=== PATIENT | female | born 1965 | race Caucasian/White ===

== ENCOUNTER 2022-04-28 11:14 | Observation (INO) | payer OTHER ==
[~2022-04-28] VITALS: Ht 157.5 cm; Wt 90.3 kg
[2022-04-28] MEDS ORDERED: METOPROLOL TAR100 MG PO (13:28)
[2022-04-28] MEDS ORDERED: FUROSEMIDE40 MG PO (13:28)
[2022-04-28] MEDS ORDERED: LOSARTAN POTASS25 MG PO (13:28)
[2022-04-28] MEDS ORDERED: OMEPRAZOLE40 MG PO (13:28)
[2022-04-28] MEDS ORDERED: LIPITOR10 MG PO (13:28)
[2022-04-28] MEDS ORDERED: ASPIRIN81 MG PO (13:28)
[2022-04-28 13:37] VITALS: BP 169/87
[2022-04-28 13:38] VITALS: BP 165/84
[2022-04-28] MEDS ORDERED: INSULIN LISPRO 100 UNIT/1 ML 3ML VIAL SQ SCH (16:30)
[2022-04-28] MEDS: INSULIN LISPRO 100 UNIT/1 ML 3ML VIAL SQ SCH ×2 (17:00→21:00)
[2022-04-28] MEDS ORDERED: DEXTROSE 50% SYRINGE 50 ML IV PRN (17:00)
[2022-04-28 17:06] VITALS: BP 179/86
[2022-04-28 17:07] LABS: BASOPHILS % 0.1 % (0.0-1.0); EOSINOPHILS % 0.1 % (0.0-6.0); HEMATOCRIT 41.6 % (34.2-44.1); HEMOGLOBIN 13.6 g/dL (12.0-16.0); LYMPHOCYTES # (AUTO) 1.4 (1.0-3.2); LYMPHOCYTES % 9.5 % (18.0-39.1); MEAN CORPUSCULAR HEMOGLOBIN 29.2 pg (28-32); MEAN CORPUSCULAR HGB CONC 32.7 g/dL (31-35); MEAN CORPUSCULAR VOLUME 89.3 fL (81-99); MONOCYTES # (AUTO) 0.9 (0.2-0.8); MONOCYTES % 5.8 % (4.4-11.3); NEUTROPHILS # (AUTO) 12.4 (2.1-6.9); PLATELET COUNT 301 x10e3/uL (140-360); RED BLOOD COUNT 4.66 x10e6/uL (3.6-5.1); RED CELL DISTRIBUTION WIDTH 12.1 % (11.7-14.4)
[2022-04-28 17:17] LABS: INR 0.95; PROTHROMBIN TIME 13.5 seconds (11.9-14.5)
[2022-04-28 17:27] LABS: ALBUMIN 3.5 g/dL (3.5-5.0); ANION GAP 16.7 mmol/L (8-16); CALCIUM 8.9 mg/dL (8.4-10.2); CREATININE, SERUM 0.73 mg/dL (0.57-1.11); POTASSIUM 3.7 mmol/L (3.5-5.1)
[2022-04-28] MEDS: METOPROLOL TARTRATE 50 MG TAB PO SCH (18:01)
[2022-04-28 20:15] VITALS: BP 179/86
[2022-04-28] MEDS ORDERED: ACETAMINOPHEN 325 MG TAB PO PRN (20:15)
[2022-04-28] MEDS ORDERED: HYDRALAZINE HCL 20 MG/ML VIAL IV PRN (20:15)
[2022-04-28] MEDS ORDERED: POTASSIUM CHLORIDE 20MEQ/100ML 100 ML IV PRN (20:15)
[2022-04-28] MEDS ORDERED: ONDANSETRON HCL INJ 2MG/ML 2ML 2 MG/ML VIAL IV PRN (20:15)
[2022-04-28] MEDS ORDERED: MAGNESIUM SULFATE 2GM/50ML IV PRN (20:15)
[2022-04-28 20:39] VITALS: BP 186/79
[2022-04-28] MEDS ORDERED: INSULIN GLARGINE 100 UNITS/ML VIAL SQ SCH (21:00)
[2022-04-28] MEDS ORDERED: ATORVASTATIN 40 MG TAB PO SCH (21:00)
[2022-04-28] MEDS ORDERED: ENOXAPARIN SODIUM INJ 100 MG/ML SYR SC ONE (21:00)
[2022-04-28 23:43] VITALS: BP 164/84
[2022-04-29 05:23] VITALS: BP 148/81
[2022-04-29 06:01] LABS: BASOPHILS % 0.2 % (0.0-1.0); EOSINOPHILS % 0.1 % (0.0-6.0); HEMATOCRIT 41.6 % (34.2-44.1); HEMOGLOBIN 14.1 g/dL (12.0-16.0); LYMPHOCYTES # (AUTO) 1.5 (1.0-3.2); LYMPHOCYTES % 11.5 % (18.0-39.1); MEAN CORPUSCULAR HEMOGLOBIN 28.8 pg (28-32); MEAN CORPUSCULAR HGB CONC 33.9 g/dL (31-35); MEAN CORPUSCULAR VOLUME 84.9 fL (81-99); MONOCYTES # (AUTO) 0.8 (0.2-0.8); NEUTROPHILS # (AUTO) 10.9 (2.1-6.9); NEUTROPHILS % 81.7 % (38.7-80.0); PLATELET COUNT 326 x10e3/uL (140-360); RED CELL DISTRIBUTION WIDTH 11.9 % (11.7-14.4)
[2022-04-29 06:41] LABS: THYROID STIMULATING HORMONE 0.339 uIU/mL (0.350-4.940)
[2022-04-29 06:43] LABS: CHOL/HDL RATIO 3.8 (3.0-3.6); MAGNESIUM 2.1 MG/DL (1.3-2.1)
[2022-04-29] MEDS ORDERED: OMEPRAZOLE 20 MG CAP PO SCH (07:30)
[2022-04-29 07:42] VITALS: BP 187/94
[2022-04-29] MEDS: INSULIN LISPRO 100 UNIT/1 ML 3ML VIAL SQ SCH ×2 (08:00→12:00)
[2022-04-29 08:42] VITALS: BP 187/94
[2022-04-29] MEDS: METOPROLOL TARTRATE 50 MG TAB PO SCH (08:44)
[2022-04-29] MEDS ORDERED: ASPIRIN 81 MG CHEW TAB PO SCH (09:00)
[2022-04-29 09:40] VITALS: BP 184/107
[2022-04-29] MEDS ORDERED: HEPARIN SOD/SOD CHLORIDE 2,000 ML ONE (10:05)
[2022-04-29] MEDS ORDERED: IOPAMIDOL 370 MG/ML 100 ML INFUS..BTL INJ ONE (10:05)
[2022-04-29] MEDS ORDERED: MIDAZOLAM HCL 2 MG/2 ML VIAL ONE (10:13)
[2022-04-29] MEDS ORDERED: FENTANYL CITRATE/PF 100MCG/2 ML INJ ONE (10:13)
[2022-04-29 11:29] VITALS: BP 171/93
[2022-04-29] MEDS ORDERED: ISOSORBIDE MONONITRATE 30 MG TAB CR PO SCH (12:15)
[2022-04-29] MEDS ORDERED: CLOPIDOGREL BISULFATE 75 MG TAB PO SCH (12:15)
[2022-04-29 15:25] VITALS: BP 147/90
[2022-04-29] MEDS ORDERED: PLAVIX75 MG PO (16:34)
== END 2022-04-29 18:10 | disposition home or self-care (01) ==
LOC: MED/SURG2 11:14 → INTOOBSV 11:14
PROVIDERS: ADMIT Internal Medicine; ATTEND Internal Medicine
DX: I25.720 Atherosclerosis of autologous artery coronary artery bypass graft(s) with unstable angina pectoris (principal); I21.A1 Myocardial infarction type 2; Z95.1 Presence of aortocoronary bypass graft; Z20.822 Contact with and (suspected) exposure to COVID-19; E11.69 Type 2 diabetes mellitus with other specified complication; E78.5 Hyperlipidemia, unspecified; I49.1 Atrial premature depolarization; I10 Essential (primary) hypertension; Z79.4 Long term (current) use of insulin; Z79.899 Other long term (current) drug therapy; I25.110 Atherosclerotic heart disease of native coronary artery with unstable angina pectoris; I25.710 Atherosclerosis of autologous vein coronary artery bypass graft(s) with unstable angina pectoris
CPT/HCPCS: 36415 ×2; 76937; 80053; 80061; 82948 ×2; 83036; 83735; 84443; 84484 ×2; 85025 ×2; 85610; 93459; C1760; C1894; G0378 ×2; J2250; J3010; Q9967; U0002; 99152; 99153; J1650